=== PATIENT | female | born 1935 | race Caucasian/White ===

== ENCOUNTER 2022-03-31 13:54 | Emergency (ER) | payer MEDICARE, OTHER ==
[~2022-03-31 13:54] MED LIST: AMITRIPTYLINE 225 MG PO; CARAFATE1 GM PO; NORVASC5 MG PO; PRILOSEC20 MG PO; SYNTHROID25 MCG PO; TENORMIN50 MG PO
== END 2022-03-31 16:10 | disposition home or self-care (01) ==
LOC: FER 13:54
DX: S51.811A Laceration without foreign body of right forearm, initial encounter (principal); S00.83XA Contusion of other part of head, initial encounter; I10 Essential (primary) hypertension; W01.0XXA Fall on same level from slipping, tripping and stumbling without subsequent striking against object, initial encounter; Y92.009 Unspecified place in unspecified non-institutional (private) residence as the place of occurrence of the external cause
CPT/HCPCS: 70450; 72125